=== PATIENT | male | born 1985 | race Caucasian/White ===

== ENCOUNTER 2022-08-03 14:07 | Emergency (ER) | payer MEDICAID, SELFPAY ==
[2022-08-03 14:13] VITALS: BP 178/113; PULSE 98; RESP 14; TEMP 36.7; O2SAT 99; BMI 33.9
--- NOTE | 2022-08-03 14:19 | ED_ITS ---
HPI - Back Pain/Injury General: Chief Complaint: Back Pain/Injury Stated Complaint: back pain Time Seen by Provider: 08/03/22 14:12 Source: patient Mode of arrival: ambulatory Limitations: no limitations History of Present Illness: Patient is a nice 37-year-old male who presents to ED today for complaints of lower back pain. Patient states 2 days ago he was bent over and when he went to lean up he immediately felt an excruciating sharp pain to his midline lumbar spine. Patient states almost immediately he had trouble ambulating secondary to the pain. Patient states he has been treating at home with [id number] medications as well as his prescribed Suboxone. He does state symptoms have seemed to improve and is able to ambulate now without assistance however continues to have a fair bit of discomfort prompting his ED visit. Patient is not having any radicular symptoms into his buttocks or lower extremities. He denies saddle anesthesia. He is not complaining of any bowel/bladder retention/incontinence. Patient is not having any flank pain or urinary symptoms. No abdominal or chest pain. MD elicited complaint: back pain and back injury Onset (ago): day(s) Timing: constant Severity: severe Similar Symptoms Previously: No Quality: sharp Location: lumbar spine Radiation: none Exacerbating factors: movement, walking and lifting Relieving factors: none Context: bending Associated symptoms: Deny abdominal pain, chills, dysuria, fatigue, fever(s) or hematuria Treatments prior to arrival: NSAIDS and prescription analgesics Work related injury: No Review of Systems Const: Denies: fever(s), chills, body aches, fatigue or malaise Card: Denies: chest pain Resp: Denies: dyspnea GI: Denies: abdominal pain : Denies: flank pain, dysuria or hematuria Musc: Reports: back pain; Denies: neck pain, extremity pain, extremity swelling, joint pain or joint swelling Neuro: Denies: headache(s), numbness in extremities, weakness in extremities, sensory changes or dizziness Physical Exam Const: COMMON NORMALS: no acute distress, patient oriented x3, no limitations and alert GENERAL APPEARANCE: cooperative NUTRITIONAL APPEARANCE: overweight ORIENTATION/CONSCIOUSNESS: Yes awake, Yes oriented to person, Yes oriented to place and Yes oriented to time Neck/C-Spine: COMMON NORMALS: full ROM CERVICAL SPINE: No pain with cervical ROM and No Cervical spine tenderness Resp: COMMON NORMALS: normal respiratory effort and clear to auscultation bilaterally AUSCULTATION: clear to auscultation bilaterally Cardio: COMMON NORMALS: regular rate and regular rhythm RATE: regular rate RHYTHM: regular rhythm GI: COMMON NORMALS: Normal to inspection, nondistended, normoactive bowel sounds present, Soft to palpation, non-tender and no masses PALPATION: Yes Soft to palpation : COMMON NORMALS: Yes no CVA tenderness BLADDER/KIDNEY EXAM: Yes no CVA tenderness Back/Pelvis: COMMON NORMALS: no CVA tenderness THORACIC SPINE/UPPER BACK: Yes normal to inspection, Yes thoracic ROM normal, No pain with ROM, No thoracic spinal tenderness, No paraspinal muscle tenderness and No paraspinal muscle spasm LUMBAR SPINE/LOWER BACK: Yes normal to inspection, Yes ROM limited, Yes pain with ROM, Yes lumbar spinal tenderness (midline diffuse lumbar tenderness), No paraspinal muscle tenderness, No paraspinal muscle spasm and Yes straight leg raise negative bilaterally PELVIS: Yes buttocks normal SACROILIAC JOINTS: Yes SI joints normal SACRUM: no tenderness COCCYX: no tenderness Extremity: COMMON NORMALS: normal to inspection, full ROM, capillary refill normal, no clubbing, cyanosis or edema, no calf tenderness and no pedal edema GENERAL: Yes normal exam except as noted Neuro: ANA COMA SCALE: document GCS findings [place] coma scale eye opening: Spontaneous [place] coma scale verbal response: Orientated [place] coma scale motor response: Obey commands [place] coma scale total score: 15 COMMON NORMALS: patient oriented x3, moves all extremities, no focal motor deficits, no sensory deficits noted and gait normal SENSORIUM/ORIENTATION: Yes alert, Yes oriented to person, Yes oriented to place and Yes oriented to time GAIT: Yes Normal gait present SENSORY EXAM: Yes other (sensory normal) MOTOR EXAM: 5/5 motor strength present throughout Skin: COMMON NORMALS: no rashes or lesions noted GENERAL SKIN EXAM: no rashes or lesions noted Course Vital Signs: Vital signs: Vital Signs Temperature 98.1 F 08/03/22 14:13 Pulse Rate 98 08/03/22 14:13 Respiratory Rate 14 08/03/22 14:13 Blood Pressure 178/113 08/03/22 14:13 Pulse Oximetry 99 08/03/22 14:13 Oxygen Delivery Me thod 08/03/22 14:13 MDM - Back Pain/Injury Medical Decision Making Patient feeling better after IM Toradol and Norflex. XR showing slight degenerative disc thinning but no other acute findings. He has no acute neurologic deficits or concerns on his history or physical exam. Placed patient on steroids, muscle relaxers, anti-inflammatories and have him follow-up with PCP in 1 to 2 weeks. Return ED precautions given. Of note patient arrives significantly hypertensive. He states he did not take his normal blood pressure medications today. He states normal blood pressures for him are often in the 170s systolic. Recommend he keep a blood pressure log and follow-up with PCP so they can adjust his medications as needed. Labs Radiology Impressions Lumbar Spine X-Ray 08/03/22 14:30 IMPRESSION: 1. No fracture or malalignment. Slight degenerative disc thinning at L3-4 and L5-S1. 2. Mild dextroscoliosis that might be positional. Discharge Plan Discharge Patient Disposition: Home Clinical Impression: Strain of lumbar region Qualifiers: Encounter type: initial encounter Qualified Code(s): S39.012A - Strain of muscle, fascia and tendon of lower back, initial encounter Condition: Stable Prescriptions: New methocarbamol 500 mg tablet 1,000 mg PO Q8H Qty: 30 0RF diclofenac sodium 50 mg tablet,delayed release (DR/EC) 50 mg PO Q12H PRN (Reason: pain) Qty: 20 0RF Medrol (Yash) 4 mg tablets,dose pack See Rx Instructions .ROUTE .COMPLEX Qty: 21 0RF Rx Instructions: orally per package directions Discharge Orders: Discharge ED (Routine); Ordered 08/03/22 Ordered By: Selina Ocampo Referrals: Kiki Tavares NP [Primary Care Provider] - Patient Instructions: Low Back Strain (ED) Stand Alone Forms: Work/School Release Coding Level of Care Code ED Psychology Physician for Chg Fwd Exam Comprehensive
--- NOTE | 2022-08-03 14:30 | XR_ITS ---
WS: [id number] Exam: XR lumbar spine 2-3V* [id number] Date/Time of Exam: 08/03/2022 2:44 PM Reason For Exam: pain No fracture or dislocation. Mild degenerative disc thinning at L3-4 and L5-S1 Posterior elements are intact. Mild dextroscoliosis that could be positional. SI joints are open. XR/XR lumbar spine 2-3V* [id number] IMPRESSION: 1. No fracture or malalignment. Slight degenerative disc thinning at L3-4 and L 5-S1. 2. Mild dextroscoliosis that might be positional.
[2022-08-03] MEDS: ketorolac 60 mg/2 mL INJ IM (14:59)
[2022-08-03] MEDS: orphenadrine 30 mg/mL Inj 2 mL 60 MG IM (15:00)
[2022-08-03 15:38] VITALS: PULSE 67; O2SAT 97
== END 2022-08-03 15:39 | disposition home or self-care (01) ==
PROVIDERS: Emergency Provider Physician Assistant; PCP Nurse Practitioner Family
DX: S39.012A Strain of muscle, fascia and tendon of lower back, initial encounter (principal); X50.1XXA Overexertion from prolonged static or awkward postures, initial encounter
CPT/HCPCS: 72100; 96372; 99284; J1885; J2360

== ENCOUNTER 2024-10-02 03:25 | Emergency (ER) | payer SELFPAY ==
[2024-10-02 03:29] VITALS: BP 144/111; PULSE 85; RESP 16; TEMP 36.6; O2SAT 99; BMI 36.5
--- NOTE | 2024-10-02 03:39 | CTR_ITS ---
PROCEDURE INFORMATION: Exam: CT Abdomen And Pelvis Without Contrast Exam date and time: 10/02/2024 3:57 AM Age: 39 years old Clinical indication: Abdominal pain; Flank; Left lower quadrant (llq); Additional info: Left-sided flank pain radiating to the groin, history of kid TECHNIQUE: Imaging protocol: Computed tomography of the abdomen and pelvis without contrast. Radiation optimization: All CT scans at this facility use at least one of these dose optimization techniques: automated exposure control; mA and/or kV adjustment per patient size (includes targeted exams where dose is matched to clinical indication); or iterative reconstruction. COMPARISON: CR XR lumbar spine 2-3V* [id number] 08/03/2022 2:40 PM RADIATION DOSE METRICS: Total DLP (mGy-cm): 1222.23 FINDINGS: Lungs: Lingular atelectasis. Heart: Base of heart is unremarkable as visualized. Liver: Normal. No mass. Gallbladder and biliary ducts: Gallbladder is decompressed. Pancreas: Normal. No ductal dilation. Spleen: Normal. No splenomegaly. Adrenal glands: Normal. No mass. Kidneys and ureters: Multifocal left nonobstructive nephrolithiasis. Mild prominence of the left ureter and left renal pelvis without hydronephrosis. Stomach and bowel: Mild colonic stool burden. Appendix: Multiple hyperattenuating stool throughout the appendix, appendix is not inflamed. Intraperitoneal space: Unremarkable. No free air. No significant fluid collection. Vasculature: Mild atherosclerotic disease. Pelvic phleboliths. Lymph nodes: Unremarkable. No enlarged lymph nodes. Urinary bladder: Urinary bladder is decompressed. Reproductive: Unremarkable as visualized. Bones/joints: Degenerative changes of the visualized osseous structures. Soft tissues: Unremarkable. CT/CT kidney stone [id number] IMPRESSION: Findings of the left urinary collecting system suggest recently passed stone. No obstructing stone is noted. Nonobstructive left nephrolithiasis is seen. Difficult to exclude infection. Correlate clinically.
--- NOTE | 2024-10-02 03:39 | ED_ITS ---
HPI - Back Pain/Injury 2 General: Chief Complaint: Abdominal Pain Stated Complaint: Lower Back Pain\Cant not Urinate Time Seen by Provider: 10/02/24 03:39 History of Present Illness: Patient presents to the ER with complaints of left-sided flank pain rating down to his groin. Sharp stabbing nature presents like his prior kidney stones. Patient take Tylenol 1000 mg at 3 AM and it did give patient some relief. Patient denies any fever or chills, nausea vomiting, Related Data Previous Rx's ?Medication ?Instructions ?Recorded diclofenac sodium 50 mg 50 mg PO Q12H PRN pain #20 t abs 08/03/22 tablet,delayed release methocarbamol 500 mg tablet 1,000 mg (2 x 500 mg) PO Q 8H #30 08/03/22 tabs methylprednisolone 4 mg tablets in See Rx Instructions PO .COMPLEX 08/03/22 a dose pack (Medrol (Yash)) #21 ea Allergies Allergy/AdvReac Type Severity Reaction Status Date / Time No Known Allergies Allergy Unverified 07/11/23 09:02 Review of Systems 2 General: Reports: 10 or more systems reviewed and unremarkable except in HPI and below Physical Exam 2 Const: COMMON NORMALS: no acute distress, average body habitus, patient oriented x3, no limitations, healthy appearing, alert and well nourished HENMT: COMMON NORMALS: normocephalic, atraumatic, hearing grossly normal bilaterally, external ears normal, Normal external nose present, moist oral mucous membranes and oropharynx normal HEAD & SCALP: normocephalic and atraumatic NOSE: Normal external nose present EXTERNAL EAR: Yes external ears normal Neck/C-Spine: COMMON NORMALS: no JVD Chest: COMMONS NORMALS: normal inspection of the chest and normal palpation of entire chest wall Resp: COMMON NORMALS: normal respiratory effort, No retractions, No use of accessory muscles and clear to auscultation bilaterally AUSCULTATION: clear to auscultation bilaterally Cardio: COMMON NORMALS: no JVD, regular rate, regular rhythm, S1 normal heart sound present, S2 normal heart sound present, No gallops present (Cardio), No clicks present (Cardio), No murmurs present (Cardio) and No rub (Cardio) R ATE: regular rate RHYTHM: regular rhythm HEART SOUNDS: S1 normal heart sound present and S2 normal heart sound present GI: COMMON NORMALS: Normal to inspection, nondistended, normoactive bowel sounds present, Soft to palpation, non-tender, No hepatosplenomegaly present and no masses PALPATION: Yes Soft to palpation and Yes No hepatosplenomegaly present Neuro: COMMON NORMALS: patient oriented x3 SENSORIUM/ORIENTATION: Yes alert Course 2 Vital Signs: Vital signs: Vital Signs Temperature 97.8 F 10/02/24 03:29 Pulse Rate 84 10/02/24 04:57 Respiratory Rate 16 10/02/24 03:29 Blood Pressure 154/96 10/02/24 04:57 Pulse Oximetry 96 10/02/24 04:57 Oxygen Delivery Me thod Room Air 10/02/24 04:57 MDM - Back Pain/Injury Medical Decision Making CT scan of abdomen pelvis without contrast showed recently passed stones suggestive of, no obstructing stone, nonobstructive left kidney stone is seen. Lab work essentially unremarkable except urine red blood cells 21-50, blood 2+, AST and ALT 94 and 117, Medical Records I reviewed the patient's medical records. Labs I reviewed the patient's lab results. 10/02/24 03:40 10/02/24 03:40 Radiology Impressions Abdomen/Pelvis CT 10/02/24 03:39 IMPRESSION: Findings of the left urinary collecting system suggest recently passed stone. No obstructing stone is noted. Nonobstructive left nephrolithiasis is seen. Difficult to exclude infection. Correlate clinically. Laboratory Results WBC 5.88 10^3/uL (3.29-11.43) 10/02/24 03:40 RBC 5.07 10^6/uL (3.85-5.65) 10/02/24 03:40 Hgb 16.10 g/dL (11.27-16.99) 10/02/24 03:40 Hct 48.8 % (37-53) 10/02/24 03:40 MCV 96.3 fl (82-101) 10/02/24 03:40 MCH 31.8 pg (27-33) 10/02/24 03:40 MCHC 33.0 g/dL (30-55) 10/02/24 03:40 RDW 12.7 % (12.1-15.1) 10/02/24 03:40 Plt Count 242 10^3/cmm (157-399) 10/02/24 03:40 MPV 10.1 fL (7.4-10.4) 10/02/24 03:40 Neut % (Auto) 50.9 % 10/02/24 03:40 Lymph % (Auto) 37.9 % 10/02/24 03:40 [place] % (Auto) 7.3 % 10/02/24 03:40 Eos % (Auto) 2.7 % 10/02/24 03:40 Baso % (Auto) 1.0 % 10/02/24 03:40 Neut # (Auto) 2.99 10^3/uL (1.8-7.7) 10/02/24 03:40 Lymph # (Auto) 2.2 10^3/uL (0.8-4.8) 10/02/24 03:40 [place] # (Auto) 0.4 10^3/uL (0.2-0.9) 10/02/24 03:40 Eos # (Auto) 0.2 10^3/uL (0.0-0.8) 10/02/24 03:40 Baso # (Auto) 0.1 10^3/uL (0.0-0.1) 10/02/24 03:40 Nucleated RBC % (auto) 0 % 10/02/24 03:40 Nucleated RBCs # 0.0 /100WBC 10/02/24 03:40 Sodium 145 mmol/L (136-145) 10/02/24 03:40 Potassium 3.4 mmol/L (3.5-5.1) L 10/02/24 03:40 Chloride 103 mmol/L (98-107) 10/02/24 03:40 Carbon Dioxide 31 mmol/L (22-29) H 10/02/24 03:40 Anion Gap 14.4 (5-19) 10/02/24 03:40 BUN 10 mg/dL (6-20) 10/02/24 03:40 Creatinine 0.8 mg/dL (0.7-1.2) 10/02/24 03:40 GFR Calculation 108.2 mL/min (90-130) 10/02/24 03:40 Glucose 114 mg/dL (65-115) 10/02/24 03:40 Calculated Osmolality 300 mOsm/kg (285-295) H 10/02/24 03:40 Calcium 9.7 mg/dL (8.5-10.5) 10/02/24 03:40 Total Bilirubin 0.4 mg/dL (0.15-1.2) 10/02/24 03:40 AST 94 U/L (0-40) H 10/02/24 03:40 ALT 117 U/L (0-41) H 10/02/24 03:40 Alkaline Phosphatase 124 U/L (40-130) 10/02/24 03:40 Total Protein 7.8 g/dL (6.6-8.7) 10/02/24 03:40 Albumin 4.6 g/dL (3.5-5.2) 10/02/24 03:40 Globulin 3.2 g/dL (1.3-4.6) 10/02/24 03:40 Lipase 17 U/L (13-60) 10/02/24 03:40 Urine Color Yellow (Yellow) 10/02/24 04:53 Urine Appearance Clear (CLEAR) 10/02/24 04:53 Urine pH 7.0 (5-7) 10/02/24 04:53 Ur Specific [place] 1.012 (1.005-1.030) 10/02/24 04:53 Urine Protein Negative (Negative) 10/02/24 04:53 Urine Glucose (UA) Negative (Normal) 10/02/24 04:53 Urine Ketones Negative (Negative) 10/02/24 04:53 Urine Blood 2+ (Negative) A 10/02/24 04:53 Urine Nitrate Negative (Negative) 10/02/24 04:53 Urine Bilirubin Negative (Negative) 10/02/24 04:53 Urine Urobilinogen 0.2 mg/dL (Negative) 10/02/24 04:53 Ur Leukocyte Esterase Negative (Negative) 10/02/24 04:53 Urine RBC 21-50 /hpf (0-2) H 10/02/24 04:53 Urine WBC 0-5 /hpf (0-5) 10/02/24 04:53 Ur Squamous Epith Cells 0-5 /hpf (0-5) 10/02/24 04:53 Amorphous Sediment Not Reportable 10/02/24 04:53 Urine Bacteria None seen /hpf (NONE) 10/02/24 04:53 Hyaline Casts 1.65 /lpf 10/02/24 04:53 All radiology interpretation(s) finalized by discharge Discharge Plan Discharge Patient Disposition: Home Clinical Impression: Calculus of kidney Condition: Stable Prescriptions: No Action methocarbamol 500 mg tablet 1,000 mg PO Q8H Qty: 30 0RF diclofenac sodium 50 mg tablet,delayed release (DR/EC) 50 mg PO Q12H PRN (Reason: pain) Qty: 20 0RF Medrol (Yash) 4 mg tablets,dose pack See Rx Instructions .ROUTE .COMPLEX Qty: 21 0RF Rx Instructions: orally per package directions Discharge Orders: Discharge ED (Routine); Ordered 10/02/24 Ordered By: Ruperto Hicks Patient Instructions: Flank Pain (ED), How to Strain Your Urine (ED), Kidney Stones Activity Restrictions/Additional Instructions: Your evaluation ER with CT scan showed you have probably just passed a kidney stone and you have 1 more stone up in your kidney. This may cause you problems in the future however it may not. Please drink plenty of fluids and take Tylenol [id number] as directed for pain control. Please follow-up with your family practitioner within next 7 days for further evaluation and treatment as needed. Print Language: Sinhala Coding Level of Care Code ED Clinical Nurse for Ramo Campbell
[2024-10-02 03:54] LABS: Basophils # 0.1 10^3/uL (0.0-0.1); Eosinophils # 0.2 10^3/uL (0.0-0.8); Eosinophils % 2.7 %; Hematocrit 48.8 % (37-53); Lymphocytes # 2.2 10^3/uL (0.8-4.8); Lymphocytes % 37.9 %; Mean Corpuscular Hemoglobin 31.8 pg (27-33); Mean Corpuscular Volume 96.3 fl (82-101); Mean Platelet Volume 10.1 fL (7.4-10.4); Monocytes # 0.4 10^3/uL (0.2-0.9); Monocytes % 7.3 %; Neutrophils # 2.99 10^3/uL (1.8-7.7); Neutrophils % 50.9 %; Nucleated Red Blood Cells % 0 %; Platelet Count 242 10^3/cmm (157-399); Red Blood Count 5.07 10^6/uL (3.85-5.65); Red Cell Distribution Width 12.7 % (12.1-15.1); White Blood Count 5.88 10^3/uL (3.29-11.43)
[2024-10-02 04:16] LABS: Alanine Aminotransferase 117 U/L (0-41); Albumin Level 4.6 g/dL (3.5-5.2); Alkaline Phosphatase 124 U/L (40-130); Anion Gap 14.4 (5-19); Aspartate Amino Transferase 94 U/L (0-40); Blood Urea Nitrogen 10 mg/dL (6-20); Calcium 9.7 mg/dL (8.5-10.5); Carbon Dioxide 31 mmol/L (22-29); Chloride 103 mmol/L (98-107); Creatinine Clr Calc Pharmacy 149.7856; Globulin 3.2 g/dL (1.3-4.6); Glomerular Filtration Rate 108.2 mL/min (90-130); Glucose 114 mg/dL (65-115); Osmolality Calculated 300 mOsm/kg (285-295); Potassium 3.4 mmol/L (3.5-5.1); Sodium 145 mmol/L (136-145); Total Bilirubin 0.4 mg/dL (0.15-1.2); Total Protein 7.8 g/dL (6.6-8.7)
[2024-10-02 04:33] LABS: Lipase 17 U/L (13-60)
[2024-10-02 04:57] VITALS: BP 154/96; PULSE 84; O2SAT 96
[2024-10-02 05:00] VITALS: BP 140/93; PULSE 77; O2SAT 96
[2024-10-02 05:04] LABS: Bilirubin Urine Negative (Negative); Blood Urine 2+ (Negative); Glucose Urine UA Negative (Normal); Ketones Urine Negative (Negative); Leukocyte Esterase Urine Negative (Negative); Nitrate Urine Negative (Negative); Protein Urine Negative (Negative); Specific Gravity, Urine 1.012 (1.005-1.030); Urine Appearance Clear (CLEAR); Urine Color Yellow (Yellow); Urobilinogen Urine 0.2 mg/dL (Negative)
[2024-10-02 05:09] LABS: Add Urine Microscopic? YES; Bacteria Urine None Seen /hpf; Hyaline Casts Urine 1.65 /lpf; RBC Urine 21-50 /hpf (0-2); Squamous Epithelial Cell Urine 0-5 /hpf (0-5); WBC Urine 0-5 /hpf (0-5)
[2024-10-02 05:10] LABS: Add Urine Culture? Yes
[2024-10-02 05:47] VITALS: BP 148/105; PULSE 88; RESP 19; O2SAT 98
== END 2024-10-02 05:43 | disposition home or self-care (01) ==
PROVIDERS: Emergency Provider Emergency Medicine
DX: N20.0 Calculus of kidney (principal)
CPT/HCPCS: 36415; 74176; 80053; 81001; 83690; 85025; 87086; 99284